=== PATIENT | female | born 1990 | race Two or more races ===

== ENCOUNTER 2023-04-17 11:34 | Emergency (ER) | payer OTHER ==
[~2023-04-17] VITALS: Ht 175.3 cm; Wt 53.1 kg
== END 2023-04-17 12:51 | disposition home or self-care (01) ==
LOC: ER 11:34
DX: U07.1 COVID-19 (principal); Z87.09 Personal history of other diseases of the respiratory system

== ENCOUNTER 2024-04-26 08:29 | Emergency (ER) | payer OTHER ==
[~2024-04-26] VITALS: Ht 175.3 cm; Wt 54.4 kg
[2024-04-26] MEDS ORDERED: CLIMARA1 EAC2 TD (09:31)
[2024-04-26] MEDS ORDERED: LEVOXYL75 MCG PO (09:32)
[2024-04-26 10:05] LABS: HEMATOCRIT 41.2 % (36.0-45.00); HEMOGLOBIN 14.2 g/dL (12.0-15.00); MEAN CELL VOLUME 84.9 fL (80.00-100.00); MEAN CORPUSCULAR HEMOGLOBIN 29.2 pg (27.00-32.0); MEAN CORPUSCULAR HGB CONC 34.3 g/dl (32.0-36.0); PLATELET COUNT 181 K/uL (150-450); RED BLOOD COUNT 4.85 M/uL (4.00-6.00); RED CELL DISTRIBUTION WIDTH 13.2 % (11.5-14.5)
[2024-04-26] MEDS ORDERED: FAMCICLOVIR500 MG PO (10:15)
== END 2024-04-26 10:23 | disposition home or self-care (01) ==
LOC: ER 08:31
PROVIDERS: General Practice
DX: K12.0 Recurrent oral aphthae (principal); Z88.8 Allergy status to other drugs, medicaments and biological substances

== ENCOUNTER 2024-05-21 09:34 | Emergency (ER) | payer OTHER ==
[~2024-05-21] VITALS: Ht 175.3 cm; Wt 54.4 kg
[~2024-05-21 09:34] MED LIST: CLIMARA1 EAC2 TD; FAMCICLOVIR500 MG PO; LEVOXYL75 MCG PO
[2024-05-21] MEDS ORDERED: TETANUS & DIPHTHERIA TOX,ADULT 0.5 ML VIAL IM STA (10:36)
== END 2024-05-21 11:06 | disposition home or self-care (01) ==
LOC: ER 09:35
DX: S61.258A Open bite of other finger without damage to nail, initial encounter (principal); W55.01XA Bitten by cat, initial encounter; Y93.89 Activity, other specified; Y92.89 Other specified places as the place of occurrence of the external cause; Y99.8 Other external cause status; Z88.1 Allergy status to other antibiotic agents

== ENCOUNTER → 2025-03-23 | Emergency (ER) | payer OTHER | END | disposition left against medical advice (07) | LOC: ER 13:22 | DX: Z53.21 Procedure and treatment not carried out due to patient leaving prior to being seen by health care provider (principal) ==